=== PATIENT | female | born 1950 | race Caucasian/White ===

== ENCOUNTER 2016-06-20 02:49 | Emergency (ER) | payer MEDICARE, OTHER ==
[~2016-06-20] VITALS: Ht 167.6 cm; Wt 95.5 kg
[2016-06-20 03:00] VITALS: BP 133/87; PULSE 77; RESP 16; O2SAT 95
--- NOTE | 2016-06-20 03:08 | ED.REPORT ---
HPI-Rash / Abscess Date of Service June 20, 2016 ED Provider: Justo Joel Patient is a 66 year old female who presents to the ED complaining of a rash on the back of her scalp onset 5 days ago. Associated symptoms include pain at the site of rash that radiates to her R ear. She denies fevers, chills, nausea, itching, or any other symptoms. She has not used any new products in her hair. She did get a perm a month ago. Nursing Notes Stated Complaint: SORES ON BACK OF HEAD Chief Complaint: Skin Rash/Abscess Nursing Notes Reviewed: Yes Allergies: Coded Allergies: No Known Allergies (Unverified , 06/20/16) Scheduled Betamethasone Valerate (Betamethasone Valerate 0.1% Lotion) 60 Ml Lotion 1 APPL TOP TID Clindamycin (Clindamycin) 300 Mg Capsule 300 MG PO QID Loratadine (Claritin) 10 Mg Capsule 10 MG PO DAILY Scheduled PRN hydrOXYzine Hcl (HydrOXYzine Hcl) 25 Mg Tablet 25 MG PO TID PRN PRN For Itching General Time Seen by MD: 03:07 Chief Complaint Rash Hx Obtained From: Patient Arrived By: Walk-in Similar Sx Previous: No Past Medical History Past Medical History Unknown Past Surgical History Unknown Smoking History Unknown if Ever Smoker Ambulatory Status Independent Review of Systems Constitutional: Denies: Chills, Fever Ears / Nose / Throat: Reports: Earache right GI: Denies: Nausea Skin: Reports Rash, Denies Itching Complete sys rev & neg: except as marked. Physical Exam Initial Vital Signs Vital Signs (First) Date Time Temp Pulse Resp B/P Pulse Ox O2 Delivery O2 Flow Rate FiO2 06/20/16 03:00 36.2 77 16 133/87 95 Room Air Head / Eyes: Atraumatic, Normocephalic Respiratory: No respiratory distress Cardiovascular: Regular rate & rhythm Abdomen / GI: Soft, Non-tender Neurologic: Alert, Oriented, Nonfocal Psychiatric: Mood/affect normal, Behavior normal, Normal thought content General/Constitutional: Awake, Alert, Well appearing, Well developed Skin: Warm Color / Condition: Positive: Rash present Rash / Lesion Notes: scaly, eczematous lesions on scalp Neck: Full range of motion posterior chain lymphadenopathy bilat Interpretation & Diagnostics Lab Results Interpretation Result Diagram: 06/20/16 0350 06/20/16 0350 Test 06/20/16 03:50 White Blood Count 4.3th/mm3 (3.8-10.1) Red Blood Count 4.74mil/mm3 (3.90-5.20) Hemoglobin 14.1g/dL (12.0-15.6) Hematocrit 41.3% (35.0-46.0) Mean Corpuscular Volume 87.1fL (81-100) Mean Corpuscular Hemoglobin 29.7pg (27.0-35.0) Mean Corpuscular Hemoglobin Concent 34.1% (32.0-37.0) Red Cell Distribution Width 14.8% (12.3-15.4) Platelet Count 220bil/L (150-400) Neutrophils (%) (Auto) 43.8% (40-74) Lymphocytes (%) (Auto) 34.0% (14-46) Monocytes (%) (Auto) 17.1% (4-12) Eosinophils (%) (Auto) 4.2% (0-5) Basophils (%) (Auto) 0.9% (0-3) Erythrocyte Sedimentation Rate 7mm/hr (0-40) Sodium Level 141mEq/L (134-144) Potassium Level 4.5mEq/L (3.5-5.2) Chloride Level 103mEq/L (97-108) Carbon Dioxide Level 25mmol/L (18-29) Blood Urea Nitrogen 25mg/dL (8-27) Creatinine 1.03mg/dL (0.57-1.00) Estimat Glomerular Filtration Rate 76mL/min (>59) Glucose Level 109mg/dL (60-99) Calcium Level 10.0mg/dL (8.5-10.1) Total Bilirubin 0.2mg/dL (0.0-1.2) Aspartate Amino Transf (AST/SGOT) 24U/L (0-50) Alanine Aminotransferase (ALT/SGPT) 19U/L (0-32) Alkaline Phosphatase 74U/L (25-165) Total Protein 7.2g/dL (6.4-8.4) Albumin 4.0g/dL (3.4-5.0) Hold Meza Top Tube Received (Received) Re-Eval/Medical Decision Med Decision/Clinical Course [age] year old with painful scaling burning and mild itching lesions on the scalp. No other lesions elsewhere. Strong suspicion of contact/atopic dermatitis due to hair product. Last perm was nearly a month ago, but she uses various coloring and shampoo and conditioner products. All these are old standards for her, but this obviously does not exclude development of allergy to one another of the components. Recommended to revert to baby shampoo and minimal exposure. Betamethasone valerate lotion to the lesions. She does have adenopathy bilaterally that may be some superinfection issues. Begun with clindamycin orally. Follow up with PCP. Lesions are definitely on both sides of the midline and are clearly not shingles. No evidence of lice or other infestation. Re-Evaluation/Progress : Time of Eval: 03:27 Re-Evaluation/Progress Note: Discussed plan for discharge. Patient understands and agrees with plan. All questions addressed at this time. Counseled Regarding: Diagnosis, Lab results, Need for follow-up, When/why to return to ED Discharge & Departure Shift Change Sign-Out Response to Therapy: Improved Impression: Primary Impression: Contact dermatitis Contact dermatitis type: unspecified Contact dermatitis trigger: unspecified trigger Qualified Code: L25.9 - Unspecified contact dermatitis, unspecified cause Additional Impression: Posterior cervical lymphadenopathy Disposition: Home Discharge Condition All VS Reviewed: Yes Condition: Improved Additional Instructions: This appears to be a contact dermatitis, probably related to your shampoo or other hair product. Discontinue your current products, and simplify to baby shampoo for now. Do not use conditioners, coloring agents, or perm treatments. Apply Kenalog lotion to the affected areas three times daily. The enlarged lymph nodes make me suspect a superinfection of the primary allergy lesions. Begin clindamycin four times daily for seven days. Claritin daily. Vistaril up to four times daily if needed additionally for itch or burning symptoms. Follow-up with your doctor in the office. Referrals: [facility] Scribe Attestation Portions of this note were transcribed by Devyn Cash. I, Dr. Joel personally performed the history, physical exam and medical decision-making; I reviewed and confirmed the accuracy of the information in the transcribed note. Signed by: Devyn Cash 06/20/16, 0328 copies to: [facility] Sean Joel MD June 20, 2016 03:08 DEVYN CASH June 20, 2016 03:15
[2016-06-20] MEDS ORDERED: CLIN-78 PO (03:23)
[2016-06-20] MEDS ORDERED: LORA10CA PO (03:24)
[2016-06-20] MEDS ORDERED: BETA60LO4 TOP (03:24)
[2016-06-20] MEDS ORDERED: HYDR-656 PO (03:25)
[2016-06-20 04:00] LABS: BASOPHILS % (AUTO) 0.9 % (0-3); EOSINOPHILS % (AUTO) 4.2 % (0-5); MONOCYTES % (AUTO) 17.1 % (4-12); Mean Corpuscular Hemoglobin 29.7 pg (27.0-35.0); Mean Corpuscular Volume 87.1 fL (81-100); NEUTROPHILS % (AUTO) 43.8 % (40-74); Platelet Count 220 bil/L (150-400)
[2016-06-20 04:19] VITALS: BP 128/82; PULSE 73; RESP 17; O2SAT 96
[2016-06-20 04:23] LABS: ERYTHROCYTE SEDIMENTATION RATE 7 mm/hr (0-40)
== END 2016-06-20 04:20 | disposition home or self-care (01) ==
LOC: SED 02:49
DX: L25.9 Unspecified contact dermatitis, unspecified cause (principal); R59.1 Generalized enlarged lymph nodes
CPT/HCPCS: 36415; 80053; 85025; 85651; 99283; Q0177